=== PATIENT | female | born 1975 | race African-American/Black ===

== ENCOUNTER 2025-02-08 09:12 | Inpatient (IN) | payer BC, OTHER ==
[~2025-02-08] VITALS: Ht 165.1 cm; Wt 80.8 kg
[~2025-02-08 09:12] MED LIST: AMLO10TA80 MT; ASPI-1497 MT; ATOR40TA70 MT; CLOP-31 PO
[2025-02-08 09:26] VITALS: O2SAT 98
[2025-02-08 10:12] LABS: BASOPHILS % 0.8 % (0.0-2.0); EOSINOPHILS % 2.0 % (0.0-5.0); HEMATOCRIT. 34.2 % (36.0-48.0); HEMOGLOBIN. 10.6 g/dL (12.0-16.0); LYMPHOCYTES % 17.2 % (20.0-50.0); MEAN PLATELET VOLUME 8.6 fl (7.4-10.4); MONOCYTES % 9.6 % (2.0-8.0); NEUTROPHILS % 70.4 % (40.0-76.0); PLATELET 166 x1000/uL (130-400); RED BLOOD CELL COUNT 3.94 mill/uL (4.2-5.4); RED CELL DISTRIBUTION WIDTH 17.8 % (11.6-14.6)
[2025-02-08 10:25] LABS: INR 1.1
[2025-02-08 10:28] LABS: CREATININE 0.9 mg/dL (0.6-1.0)
[2025-02-08 10:29] LABS: HCG SCREEN NEGATIVE; UREA NITROGEN BLOOD 12 mg/dL (9-23)
[2025-02-08 10:30] LABS: ASPARTATE AMINOTRANSFERASE 109 IU/L (<34); TROPONIN I HIGH SENSITIVITY < 4 ng/L (3.0-34)
[2025-02-08 10:31] LABS: BILIRUBIN DIRECT 0.3 mg/dL (<=3.0); BILIRUBIN TOTAL 1.1 mg/dL (0.1-1.0); PROTEIN TOTAL 7.0 g/dL (6.0-8.3)
[2025-02-08] MEDS: IOHEXOL-350 100 ML BOTTLE ONE (11:01)
[2025-02-08] MEDS ORDERED: ASPIRIN 325MG EC TABLET PO ONE (11:30)
[2025-02-08] MEDS: CLOPIDOGREL 75MG TABLET PO ONE (11:43)
[2025-02-08 12:18] LABS: TROPONIN I HIGH SENSITIVITY < 4 ng/L (3.0-34)
[2025-02-08] MEDS ORDERED: ONDANSETRON HCL 4MG/2ML INJ IV PRN (12:45)
[2025-02-08] MEDS ORDERED: IPRATROPIUM/ALBUTEROL 0.5-3(2.5)MG/3ML NEB HHN PRN (12:45)
[2025-02-08] MEDS ORDERED: DEXTROSE 50% WATER 50ML SYRINGE IV PRN ×2 (12:45→22:45)
[2025-02-08 13:09] LABS: BASOPHILS % 1.0 % (0.0-2.0); EOSINOPHILS % 0.7 % (0.0-5.0); HEMATOCRIT. 34.4 % (36.0-48.0); HEMOGLOBIN. 10.8 g/dL (12.0-16.0); LYMPHOCYTES % 17.9 % (20.0-50.0); MEAN PLATELET VOLUME 9.0 fl (7.4-10.4); MONOCYTES % 7.3 % (2.0-8.0); NEUTROPHILS % 73.1 % (40.0-76.0); PLATELET 169 x1000/uL (130-400); RED BLOOD CELL COUNT 3.96 mill/uL (4.2-5.4); RED CELL DISTRIBUTION WIDTH 18.3 % (11.6-14.6)
[2025-02-08 13:22] LABS: CREATININE 0.7 mg/dL (0.6-1.0); INR 1.0; TRIGLYCERIDE 42.0 mg/dL (0-150)
[2025-02-08 13:23] LABS: ETHANOL BLOOD < 10 mg/dL (<10); LDL CHOLESTEROL 39.0 mg/dL (5-100); UREA NITROGEN BLOOD 9 mg/dL (9-23)
[2025-02-08 13:24] LABS: ASPARTATE AMINOTRANSFERASE 97 IU/L (<34)
[2025-02-08 13:25] LABS: BILIRUBIN DIRECT 0.3 mg/dL (<=3.0); BILIRUBIN TOTAL 1.0 mg/dL (0.1-1.0); PROTEIN TOTAL 7.5 g/dL (6.0-8.3)
[2025-02-08] MEDS: BLOOD SUGAR DIAGNOSTIC STRIP TEST SCH (14:44)
[2025-02-08] MEDS: INSULIN LISPRO 100 UNITS/ML SUBCUT SCH (15:10)
[2025-02-08 16:23] LABS: *AMPHETAMINES SCREEN URINE NEGATIVE (NEGATIVE); *BENZODIAZEPINES SCREEN URINE NEGATIVE (NEGATIVE)
[2025-02-08 16:24] LABS: *BARBITURATES SCREEN URINE NEGATIVE (NEGATIVE); *COCAINE SCREEN URINE NEGATIVE (NEGATIVE); CANNABINOID URINE SCREEN NEGATIVE (NEGATIVE); ECSTASY MDMA SCREEN URINE NEGATIVE (NEGATIVE); METHADONE URINE SCREEN NEGATIVE (NEGATIVE); OPIATES URINE SCREEN NEGATIVE (NEGATIVE); PHENCYCLIDINE URINE SCREEN NEGATIVE (NEGATIVE)
[2025-02-08 16:32] LABS: CLARITY URINE CLEAR (CLEAR); COLOR URINE YELLOW (YELLOW); SPECIFIC GRAVITY URINE 1.009 (1.005-1.030)
[2025-02-08 16:33] LABS: GLUCOSE URINE NEGATIVE (NEGATIVE); PH URINE 6.5 (4.5-8.0); PROTEIN URINE 1+ (NEGATIVE)
[2025-02-08 16:35] LABS: KETONES URINE 2+ (NEGATIVE); LEUKOCYTE ESTERASE URINE NEGATIVE (NEGATIVE); NITRITE URINE NEGATIVE (NEGATIVE); OCCULT BLOOD URINE NEGATIVE (NEGATIVE); UROBILINOGEN URINE 1.0 E.U./dL (0.2-1.0)
[2025-02-08 16:50] LABS: BACTERIA URINE 1+; RBC URINE 0-2 /hpf (0-2); SQUAMOUS EPITHELIAL CELL URINE FEW /lpf (RARE/1+); WBC URINE 0-2 /hpf (0-2)
[2025-02-08] MEDS: ASPIRIN 81MG EC TABLET PO SCH (17:17)
[2025-02-08] MEDS: CLOPIDOGREL 75MG TABLET PO SCH (17:17)
[2025-02-08 18:56] VITALS: BP 119/89; PULSE 95; RESP 18; TEMP 36.6404
[2025-02-08 20:00] VITALS: BP 130/87; PULSE 96; RESP 20; TEMP 36.8; O2SAT 100
[2025-02-08] MEDS: ATORVASTATIN CALCIUM 40MG TABLET PO SCH (20:54)
[2025-02-08] MEDS ORDERED: MOXI3DRO12 EACHEYE (22:22)
[2025-02-08] MEDS ORDERED: ACET125T3 MT (22:22)
[2025-02-08] MEDS ORDERED: DORZ10DR9 EACHEYE (22:22)
[2025-02-08] MEDS ORDERED: BRIM.2 EACHEYE (22:22)
[2025-02-09] VITALS: BP 124/90; PULSE 90; RESP 18; TEMP 36.7; O2SAT 98
[2025-02-09] MEDS: DIPHENHYDRAMINE 50MG/ML VIAL IV PRN (00:08)
[2025-02-09 04:00] VITALS: BP 122/68; PULSE 77; RESP 16; TEMP 36.6; O2SAT 98
[2025-02-09] MEDS: BLOOD SUGAR DIAGNOSTIC STRIP TEST SCH (06:39)
[2025-02-09] MEDS: INSULIN LISPRO 100 UNITS/ML SUBCUT SCH (06:40)
[2025-02-09 08:00] VITALS: BP 129/90; PULSE 74; RESP 18; TEMP 35.6; O2SAT 96
[2025-02-09 08:09] LABS: BASOPHILS % 0.6 % (0.0-2.0); EOSINOPHILS % 3.5 % (0.0-5.0); HEMATOCRIT. 34.4 % (36.0-48.0); HEMOGLOBIN. 10.7 g/dL (12.0-16.0); LYMPHOCYTES % 32.6 % (20.0-50.0); MEAN PLATELET VOLUME 9.4 fl (7.4-10.4); MONOCYTES % 7.1 % (2.0-8.0); NEUTROPHILS % 56.2 % (40.0-76.0); PLATELET 142 x1000/uL (130-400); RED BLOOD CELL COUNT 3.99 mill/uL (4.2-5.4); RED CELL DISTRIBUTION WIDTH 18.2 % (11.6-14.6)
[2025-02-09 08:21] LABS: TRIGLYCERIDE 49 mg/dL (0-150)
[2025-02-09] MEDS: ACETAZOLAMIDE 500MG ER CAPSULE PO SCH (09:32)
[2025-02-09] MEDS: LORAZEPAM 2MG/ML UD SYRINGE IV NR ×2 (10:18→17:04)
[2025-02-09 10:37] LABS: CREATININE 0.7 mg/dL (0.6-1.0); UREA NITROGEN BLOOD 12 mg/dL (9-23)
[2025-02-09 10:38] LABS: LDL CHOLESTEROL 55 mg/dL (5-100)
[2025-02-09 10:39] LABS: ASPARTATE AMINOTRANSFERASE 72 IU/L (<34); BILIRUBIN DIRECT 0.2 mg/dL (<=3.0); BILIRUBIN TOTAL 0.6 mg/dL (0.1-1.0); PHOSPHORUS 3.8 mg/dL (2.5-4.9); PROTEIN TOTAL 6.5 g/dL (6.0-8.3)
[2025-02-09 12:00] VITALS: BP 116/74; PULSE 86; RESP 18; TEMP 36.5; O2SAT 98
[2025-02-09] MEDS: POTASSIUM CHLORIDE 20MEQ TABLET SR PO NR (12:04)
[2025-02-09 16:00] VITALS: BP 126/60; PULSE 92; RESP 18; TEMP 35.7; O2SAT 98
[2025-02-09 20:00] VITALS: BP 129/81; PULSE 86; RESP 18; TEMP 37.3; O2SAT 100
[2025-02-10] VITALS: BP 111/70; PULSE 78; RESP 18; TEMP 36.6; O2SAT 100
[2025-02-10 04:00] VITALS: BP 148/63; PULSE 58; RESP 18; TEMP 36.4; O2SAT 99
[2025-02-10 08:00] VITALS: BP 126/63; PULSE 78; RESP 18; TEMP 36.6; O2SAT 99
[2025-02-10] MEDS ORDERED: CIPROFLOXACIN 0.3% OPHTH SOLN 2.5ML BOTHEYE SCH (09:00)
[2025-02-10 12:00] VITALS: BP 128/59; PULSE 73; RESP 18; TEMP 36.7; O2SAT 98
[2025-02-10] MEDS ORDERED: LIP40 PO (12:38)
[2025-02-10] MEDS ORDERED: CLOP-31 PO (12:38)
[2025-02-10 14:20] VITALS: BP 128/49; PULSE 73; RESP 14; TEMP 96.8
== END 2025-02-10 16:47 | disposition home or self-care (01) | DRG 93 ==
LOC: ER 09:33 → 8WST 11:27 → EDBEDREQ 11:33 → ENRESERV 16:36
PROVIDERS: ADMIT Student in an Organized Health Care Education/Training Program; ATTEND Student in an Organized Health Care Education/Training Program
DX: R20.2 Paresthesia of skin (principal); R13.10 Dysphagia, unspecified; Z79.02 Long term (current) use of antithrombotics/antiplatelets; D64.9 Anemia, unspecified; I10 Essential (primary) hypertension; Z88.2 Allergy status to sulfonamides; Z88.6 Allergy status to analgesic agent; Z79.82 Long term (current) use of aspirin; Z79.899 Other long term (current) drug therapy; Z86.73 Personal history of transient ischemic attack (TIA), and cerebral infarction without residual deficits; R27.9 Unspecified lack of coordination; R47.1 Dysarthria and anarthria
CPT/HCPCS: 36415; 70496; 70498; 70551; 71045; 80048; 80061; 80076; 80305; 80320; 81003; 82962; 83036; 83735; 84100; 84484; 84703; 85025; 92523; 92610; 93005; 93306; 97162; 97166; 99291; J1200; J2060; Q9967; G0480